=== PATIENT | female | born 1960 | race Caucasian/White ===

== ENCOUNTER → 2019-04-01 | Outpatient (CLI) | payer BC ==
--- NOTE | 2019-04-01 13:19 | RADIOLOGY IMAGING REPORT ---
FACILITY: [facility] PATIENT NAME: ELSI MONAE : [id number] MR: [id number]: [id number] EXAM DATE: ORDERING PHYSICIAN: BECCA NAJERA TECHNOLOGIST: Veena Ariza PROCEDURE: BILATERAL DIGITAL SCREENING MAMMOGRAM WITH CAD ASSISTED INTERPRETATION & 3D TOMOSYNTHESIS REASON FOR STUDY: Screening FAMILY HISTORY OF BREAST CANCER: Sister in her 50's BREAST PROCEDURES/TREATMENTS: Patient states a duct was removed form her Right breast COMPARISON: None, this is the patient's baseline mammogram VIEWS OBTAINED: Bilateral 2D & 3D full field CC & MLO projections BREAST DENSITY: There are scattered areas of fibroglandular density throughout the breasts. MAMMOGRAM FINDINGS: In the middle depth of the Right breast posterior to mid nipple line in the Right CC view there is a circumscribed ovoid density. This appears to be in the inferior portion of the Right breast on the Right MLO view. Right breast Ultrasound recommended for further evaluation. There is no demonstration of focal mass or suspicious calcification in the Left breast. FINDINGS: DIAGNOSTIC CATEGORY 0--INCOMPLETE: NEED ADDITIONAL IMAGING EVALUATION. RECOMMENDATIONS: ULTRASOUND: RIGHT BREAST. IMPRESSION: BIRADS 0: Incomplete, need additional imaging evaluation. Right breast Ultrasound recommended as described above. Dictated by: Gayatri Ocampo M.D. on 04/01/2019 at 11:32 Transcribed by: OPAL on 04/01/2019 at 11:41 Approved by: Gayatri Ocampo M.D. on 04/01/2019 at 13:13 [facility]
== END ==
LOC: MAMO 00:58
PROVIDERS: ATTEND Nurse Practitioner
DX: Z12.31 Encounter for screening mammogram for malignant neoplasm of breast (principal); R92.8 Other abnormal and inconclusive findings on diagnostic imaging of breast
CPT/HCPCS: 77063; 77067